=== PATIENT | male | born 1975 | race Two or more races ===

== ENCOUNTER 2024-07-23 18:43 | Emergency (ER) | payer MEDICAID, SELFPAY ==
[2024-07-23 18:58] VITALS: BP 153/84; PULSE 89; RESP 18; TEMP 36.8; O2SAT 97; BMI 26.5
--- NOTE | 2024-07-23 19:00 | ED.EYEPROB ---
HPI - Eye Problem General Chief complaint: Eye Problems Stated complaint: rt eye was welding Time Seen by Provider: 07/23/24 20:55 Source: patient Limitations: no limitations History of Present Illness ED Provider: Leila moran PA-C HPI Narrative: 49-year-old otherwise healthy male presents with flash burn to bilateral eyes. 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 Associated extreme eye pain, tearing, redness. Patient denies visual changes. The patient is not diabetic and he does not use contact lenses. Related Data Previous Rx's ?Medication ?Instructions ?Recorded erythromycin 5 mg/gram (0.5 %) eye 0.5 inch ophthalmic (eye) QID #3.5 07/23/24 ointment grams ketorolac 0.5 % eye drops 1 drp ophthalmic (eye) QID PRN 07/23/24 pain 2 weeks #10 mL white petrolatum-mineral oil 83 1 appl ophthalmic (eye) DAILY #3.5 07/23/24 %-15 % eye ointment (Artificial grams Eye Lubricant) Allergies Allergy/AdvReac Type Severity Reaction Status Date / Time No Known Allergies Allergy Verified 07/23/24 19:02 Review of Systems Review of Systems: Yes all other systems are reviewed and are negative Constitutional: Constitutional: Denies fatigue, Denies fever(s) and Denies headache(s) Eyes: Eyes: Denies change in vision, Reports eye discharge, Denies loss of vision, Reports eye pain and Reports photophobia ENT: Denies headache(s) Gastrointestinal: Gastrointestinal: Denies nausea Neurologic: Denies headache(s) and Denies loss of vision Endocrine: Endocrine: Denies fatigue [facility] Past Medical History Attestation statement: The following information was validated with the patient. Social History Social History Smoked in Last 30 Days: Yes Substance Use Type: Former Substance User Advance Directives: No Advance Directives Information Provided: No Do you have a plan to hurt others: No Plan Physical Exam Vital Signs: Vital Signs: Last Vital Signs Temp 98.2 F 07/23/24 22:20 Pulse 89 07/23/24 22:20 Resp 18 07/23/24 22:20 BP 153/84 H 07/23/24 22:20 Pulse Ox 97 07/23/24 22:20 O2 Del Method Room Air 07/23/24 22:20 BMI result Body Mass Index 26.5 Const: Other: Alert, appears extremely uncomfortable Orientation/consciousness: patient oriented x3 Eyes: Other: Both the bulbar and palpebral conjunctiva are severely injected, the palpebral conjunctiva are swollen, the eyes or excessively tearing Direct Ophthalmoscopy: photophobia Resp: Other: Nonlabored respirations Cardio: Other: Normal peripheral perfusion Skin: Other: Warm dry no rash Neuro: General: patient oriented x3, no focal motor deficits and CN's II-XI intact bilaterally Psych: Other: Cooperative Course Course Course Narrative: This is an RME: Additional HPI, ROS, PE not included below will be deferred to primary provider. RME assessment and note performed by: Mary Garrett PA-C This is a [id number]-male who presents to the ER with a complaint of ?foreign body to his right eye x 3 days. Pt reporting increased discomfort to the right eye. Reports that he is a plastics heat welder that uses protection but reports that he may have gotten something into his eyes. BL eye conjunctiva injected Plan: Visual acuity, eye examination, further ER evaluation needed. Medications Administered Discontinued Medications Generic Name Dose Route Start Last Admin Trade Name Freq PRN Reason Stop Dose Admin Artificial Tears 2 drop 07/23/24 21:08 07/23/24 21:20 Artificial Tears 15 Ml Drops EYE-BOTH 07/23/24 21:09 2 drop ONCE ONE Administration Erythromycin 1 cm 07/23/24 21:08 07/23/24 21:17 Erythromycin Base 0.5% Oph Oin 1 Gm Tube EYE-BOTH 07/23/24 21:09 1 cm ONCE ONE Administration Fluorescein Sodium 1 strip 07/23/24 19:02 07/23/24 21:16 Fluorescein Sodium Strip EYE-BOTH 07/23/24 19:03 Not Given ONCE ONE Ketorolac Tromethamine 30 mg 07/23/24 21:09 07/23/24 21:16 Ketorolac Tromethamine 30 Mg/Ml Vial IM 07/23/24 21:10 30 mg ONCE ONE Administration Oxycodone HCl 10 mg 07/23/24 21:09 07/23/24 21:16 Oxycodone Hcl Immed Release 5 Mg Tablet PO 07/23/24 21:10 10 mg ONCE ONE Administration Tetracaine HCl 1 drop 07/23/24 19:02 07/23/24 21:16 Tetracaine Hcl/Pf 0.5% Oph Vielka 4 Ml Drops EYE-BOTH 07/23/24 19:03 Not Given ONCE ONE Medical Decision Making Medical Decision Making MDM Narrative: 49-year-old otherwise healthy male presents with flash burn to bilateral eyes. 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 Associated extreme eye pain, tearing, redness. Patient denies visual changes. The patient is not diabetic and he does not use contact lenses. Problem: Flash burn History: Per patient I have considered the following differential diagnoses: Flash burn to bilateral eyes Plan: The mechanism of injury is clear, he sustained a flash burn, it is sad that his care was delayed. We will send with erythromycin ointment, ketorolac drops, oral pain meds, and the contact for Ophthalmology for the morning. The patient is eager for discharge, he is becoming irritable. He is asking to leave. No indication for labs or imaging Discharge Plan Discharge Clinical Impression: Pig Farmer's flash of both eyes Patient Disposition: Home, Self-Care Instructions: Corneal Flash Restrepo (ED) Additional Instructions: See home care instructions. Use the ointment, the erythromycin, as directed, this is an antibiotic to help prevent infection. Use the pain medication as needed for your discomfort. Use the artificial tears for further lubrication of your eye and to help control the pain. You need to follow up with an hospice care transitions coordinator, I will provide you with a contact. You need to call them tomorrow. See the contact listed below Prescriptions: New erythromycin 5 mg/gram (0.5 %) ointment 0.5 inch ophthalmic (eye) QID Qty: 3.5 0RF Artificial Eye Lubricant 83-15 % ointment 1 appl ophthalmic (eye) DAILY Qty: 3.5 0RF ketorolac 0.5 % drops 1 drp ophthalmic (eye) QID PRN (Reason: pain) 14 Days Qty: 10 0RF Rx Instructions: Patient received an intramuscular dose of Toradol here in the emergency department Referrals: Seth Brannon [Physician] - (Call tomorrow to make an appointment; patient sustained a flash burn to both eyes 5 days ago. He is a plastics heat welder) Interventions: ED Discharge Assessment Last Done: 07/23/24 22:20 Discharge Date/Time: 07/23/24 22:22 Print Language: Kinyarwanda
[2024-07-23] MEDS: oxyCODONE HCl Immed Release 5 MG TABLET 10 MG PO (21:16)
[2024-07-23] MEDS: Ketorolac Tromethamine 30 MG/ML VIAL IM (21:16)
[2024-07-23] MEDS: Erythromycin Base 0.5% Oph Oin 1 GM TUBE 1 CM EYE-BOTH (21:17)
[2024-07-23] MEDS: Artificial Tears 15 ML DROPS 2 DROP EYE-BOTH (21:20)
[2024-07-23 22:20] VITALS: BP 153/84; PULSE 89; RESP 18; TEMP 36.8; O2SAT 97
== END 2024-07-23 22:22 | disposition home or self-care (01) ==
PROVIDERS: Emergency Provider Emergency Medicine
DX: H16.133 Photokeratitis, bilateral (principal)
CPT/HCPCS: 96372; 99284; J1885

== ENCOUNTER 2025-04-06 10:55 | Emergency (ER) | payer MEDICAID, SELFPAY ==
[2025-04-06] VITALS (7 sets, daily range): BP systolic 100–132; BP diastolic 54–73; PULSE 46–60; RESP 11–22; TEMP 36.4–37.1; O2SAT 96–100; BMI 25.1
--- NOTE | 2025-04-06 10:59 | ECG_ITS ---
Test Reason : WEKNESS /ABD PAIN Blood Pressure : */* mmHG Vent. Rate : 58 BPM Atrial Rate : 58 BPM P-R Int : 130 ms QRS Dur : 88 ms QT Int : 558 ms P-R-T Axes : 75 74 72 degrees QTcB Int : 547 ms Sinus bradycardia T wave abnormality, consider anterior ischemia Prolonged QT Abnormal ECG No previous ECGs available Referred By: Elly Palacios Electronically Signed By: JEFFERSON GUERRERO
--- NOTE | 2025-04-06 10:59 | ED.GENADULT ---
HPI - General Adult General Chief complaint: Weakness Stated complaint: weak Time Seen by Provider: 04/06/25 11:40 Source: patient, EMS and old records reviewed Mode of arrival: EMS Limitations: no limitations History of Present Illness ED Provider: DANNI HPI narrative: 49 yo male with PMH of opiate use disorder who takes 140mg methadone daily did not take any today. He notes he snorted 3 bags of heroin from a new dealer. He started to feel weak and lightheaded so dosed himself with [place] narcan. He now has abd cramps, chills, sweats, muscle aches and n/v diarrhea. He takes 140mg methadone daily but did not take it today states he last went yesterday. He never had LOC with today's drug use. 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) Location: abdomen Radiation: non-radiation Severity: moderate Quality: aching Pain Consistency: constant Relieving factors: none Exacerbating factors: movement Associated symptoms: fever/chills, loss of appetite, malaise and weakness Treatments prior to arrival: other Related Data Previous Rx's ?Medication ?Instructions ?Recorded erythromycin 5 mg/gram (0.5 %) eye 0.5 inch ophthalmic (eye) QID #3.5 07/23/24 ointment grams ketorolac 0.5 % eye drops 1 drp ophthalmic (eye) QID PRN 07/23/24 pain 2 weeks #10 mL white petrolatum-mineral oil 83 1 appl ophthalmic (eye) DAILY #3.5 07/23/24 %-15 % eye ointment (Artificial grams Eye Lubricant) Allergies Allergy/AdvReac Type Severity Reaction Status Date / Time No Known Allergies Allergy Verified 04/06/25 11:00 Review of Systems Review of Systems: Constitutional : No Weight loss, No Fever, pos Chills ENT/Mouth : No sore throat, No Rhinorrhea Eyes: No Swelling, No Redness Cardiovascular : No Chest Pain, No SOB, NoEdema Respiratory : No Cough, No Sputum, No Wheezing Gastrointestinal : Positive Nausea, Positive Vomiting, positive Diarrhea, positive abdominal Pain, No Hematochezia, No Melena Genitourinary : No Dysuria, No Urinary Frequency, No Hematuria, No Urgency Musculoskeletal : No joint pain, pos Myalgias, No Joint Swelling Skin : No Skin Lesions, No rash Neuro : No Weakness, No Numbness, No Dizziness, No Headache All other systems reviewed and are negative. [facility] Past Medical History Attestation statement: The following information was validated with the patient. Source: old records reviewed Social History Social History Alcohol intake: former Smoked in Last 30 Days: Yes Use of substances other than those prescribed or required for medical reasons: Yes Substance Use Type: Heroin Advance Directives: No Advance Directives Information Provided: No Physical Exam ED Vital Signs: Vital Signs - 24 hr 04/06/25 10:57 04/06/25 12:17 04/06/25 12:22 Temperature 97.6 F 98.6 F Pulse Rate 60 48 L Pulse Rate [Monitor] 48 L Respiratory Rate 22 H 18 Blood Pressure 132/73 115/65 Pulse Oximetry 100 96 Oxygen Delivery Method Room Air Room Air 04/06/25 13:56 Temperature Pulse Rate 55 Pulse Rate [Monitor] Respiratory Rate 16 Blood Pressure Pulse Oximetry 97 Oxygen Delivery Method Room Air BMI result Body Mass Index 25.1 Appearance: Alert. Oriented X3. anxious active diarrhea mild acute distress. Eyes: Pupils equal, round and reactive to light. ENT: Pharynx normal. Neck: Normal inspection. Neck supple. CVS: Normal heart rate and rhythm. Pulses normal. Respiratory: No respiratory distress. Breath sounds normal. Abdomen: Soft and nontender. Skin: Skin warm and clammy, pilorection. Normal skin color. Normal skin turgor. Extremities: No lower extremity edema. No calf ttp Neuro: Oriented X 3. No motor deficit. No sensory deficit. CN2-12 intact Course Course Course Narrative: This is a rapid medical exam performed by Anil Palacios NP: Additional HPI, ROS, PE not included below will be deferred to primary provider. Patient is a 49-year-old male presenting with complaint of weakness and abdominal pain, nausea after using 3 bags of heroin prior to arrival. He is diaphoretic in triage. States that he snorts the heroin, did not get it from his usual dealer. Plan: EKG, labs Reevaluation(s) Reevaluation #1: t wave changes but he has no chest pain to suggest ischemia we did send his EKG to methadone clinic last dose 04/02 with 4 take home bottles Medications Administered Discontinued Medications Generic Name Dose Route Start Last Admin Trade Name Freq PRN Reason Stop Dose Admin Diazepam 2.5 mg 04/06/25 11:40 04/06/25 12:09 Diazepam 10 Mg/2 Ml Cartridge IVPUSH 04/06/25 11:41 2.5 mg STAT STA Administration Diazepam 2.5 mg 04/06/25 13:16 04/06/25 13:29 Diazepam 10 Mg/2 Ml Cartridge IVPUSH 04/06/25 13:17 2.5 mg STAT STA Administration Diphenoxylate HCl/Atropine 1 tab 04/06/25 13:16 04/06/25 13:28 Diphenoxylate/Atrop 2.5/0.025 Tablet PO 04/06/25 13:17 1 tab ONCE ONE Administration Magnesium Sulfate 2 gm in 50 mls @ 25 mls/hr 04/06/25 11:40 04/06/25 12:09 Magnesium Sulfate/H2o IV 04/06/25 13:39 25 mls/hr ONCE ONE Administration Lactated Ringer's 1,000 mls @ 999 mls/hr 04/06/25 11:40 04/06/25 13:23 Lr IV 04/06/25 12:40 Infused .Q1H1M ONE Infusion Medical Decision Making Medical Decision Making MDM Narrative: 49 yo male with PMH of opiate use disorder here s/p self admin of narcan after feeling weird with new heroin. At this time will obtain labs, qtc prolonged IV magnesium ordered, hydrate and discuss with addiction medicine given methadone and addiction medicine. Differential Diagnosis Differential Diagnoses: The differential diagnosis associated with the presentation includes opiate withdrawal, lyte abnormality Admission/Observation Consideration of admission/observation: Escalation of care including admission/observation considered repeat trop negative, tolerating PO feels much better Consult Healthcare Provider Management of the patient was discussed with: Animal Sitter (continue methadone after discussion with addiction) Lab Data MDM Lab Attestation statement: I reviewed the patient's lab results. 04/06/25 11:20 04/06/25 11:20 Labs: Lab Results 04/06/25 04/06/25 Range/Units 11:20 11:33 WBC 6.1 (4.8-10.8) X10*3/uL RBC 4.69 (4.60-5.80) X10*6/uL Hgb 14.0 (14.0-18.0) g/dl Hct 43.1 (42.0-52.0) % MCV 91.9 (80.0-98.0) fL MCH 29.9 (27.0-33.0) pg MCHC 32.5 (31.0-36.0) g/dl RDW 13.3 (11.0-16.0) % Plt Count 245 (160-400) X10*3/uL MPV 9.0 L (9.4-12.4) fL Immature Gran % (Auto) 0.3 (0.0-0.4) % Neut % (Auto) 73.9 H (45-73) % Lymph % (Auto) 16.8 L (20-40) % [place] % (Auto) 6.9 (2-11) % Eos % (Auto) 1.3 (0-4) % Baso % (Auto) 0.8 (0-2) % Lymph # (Auto) 1.0 L (1.2-4.9) X10*3/uL [place] # (Auto) 0.4 (0.1-1.2) X10*3/uL Eos # (Auto) 0.1 (0.0-0.4) X10*3/uL Baso # (Auto) 0.1 (0.0-0.2) X10*3/uL Abs Immat Gran (auto) 0.02 (0.00-0.03) X10*3/uL Absolute Neuts (auto) 4.5 (2.0-8.3) x10*3/uL Absolute Nucleated RBC 0.000 (0.0-0.012) X10*3/uL Nucleated RBC % (auto) 0.0 (0.0-0.2) /100WBC Sodium 141 (135-145) mmol/L Potassium 3.9 (3.3-5.1) mmol/L Chloride 109 H (96-108) mmol/L Carbon Dioxide 23 (22-29) mmol/L Anion Gap 13 (12-20) BUN 15 (9-16) mg/dL Creatinine 1.01 (0.5-1.4) mg/dL Estim Creat Clear Calc 90.3 Estimated GFR > 60 Random Glucose 228 H (60-115) mg/dL Calcium 9.1 (8.4-10.2) mg/dL Magnesium 2.3 (1.6-2.6) mg/dL Total Bilirubin 1.0 (0.0-1.0) mg/dL AST 45 H (5-37) U/L ALT 34 (0-40) U/L Alkaline Phosphatase 78 (39-117) U/L Troponin I High Sens < 2.7 (<3.5-35.0) ng/L Total Protein 6.7 (6.5-8.0) g/dL Albumin 3.7 (3.5-5.0) g/dL Urine Opiates Screen POSITIVE H (Not Detect) Ur Buprenorphine Scrn Not Detected (Not Detect) ng/mL Ur Oxycodone Screen Not Detected (Not Detect) ng/mL Urine Methadone Screen Positive H (Not Detect) ng/mL Urine Fentanyl Screen POSITIVE H (Not Detect) Ur Barbiturates Screen Not Detected (Not Detect) Ur Phencyclidine Scrn Not Detected (Not Detect) Ur Amphetamines Screen Not Detected (Not Detect) U Benzodiazepines Scrn Not Detected (Not Detect) Urine Cocaine Screen POSITIVE H (Not Detect) U Marijuana (THC) Screen Not Detected (Not Detect) Ethyl Alcohol < 10 mg/dL Independent Interpretation I performed an independent interpretation of an: EKG Interpretation: Rate: 58 Rhythm: sinus bradycardia [place]: Normal P waves. Normal CATHY. Normal QRS complex. ST T wave : inverted t waves in aVL, V1-V3, no ELAYNE qTC: 547 prior studies: prolonged qtc no priors The study has been interpreted contemporaneously by me. EKG #2 Rate:52 Rhythm: sinus bradycardia [place]: normal Normal P waves. Normal CATHY. Normal QRS complex. ST T wave : inverted t waves V1, V2, V3, no ELAYNE qTC: 505 prior studies: no sig change, qtc shorter The study has been interpreted contemporaneously by me. . External Record Review External record reviewed: Outpatient record Prescription Management I considered prescription management with: Other Discharge Plan Discharge Clinical Impression: Opiate withdrawal Patient Disposition: Home, Self-Care Instructions: Opioid Withdrawal (ED) Additional Instructions: stay with responsible adult tonight Opiate use disorder You were seen in our Emergency Department today for treatment of opiate use disorder. You may have been dosed with medication for opiate use disorder (MOUD) in the form of suboxone or methadone. You may experience feeling some withdrawal symptoms and this is normal. The? dose in the Emergency Department is a starting dose and meant to be titrated up once you follow up with a clinic. Please do not feel discouraged, it is a process. The nurse has reviewed with you where to follow up and what information to bring with you, to continue treatment. You also may have been given naloxone (narcan) to take home with you. This medication is used to potentially treat opiate overdose. If you decide you want to stop or cut down on how much you?re using, you can call or walk into our outpatient Addiction Treatment office: [facility] (M-F 9am-5p) [address] [place] [address], [phone] You may have been provided with safer injection?items, please take time to take care of YOU and your health. Use new supplies whenever possible to lessen the chances of infections and other illnesses.? ?If you need more supplies, please go [facility],? [address] [place] [address] OR you can call or text to coordinate delivery of safer supplies. You were also provided a list of several treatment providers in the area.? If you experience any worsening symptoms you cannot control please return to the ED or call 911. Please follow up at your next appointment. Things to look out for are fevers, chest pain, shortness of breath, severe pain, dizziness, fainting or any other concerns. Prescriptions: No Action erythromycin 5 mg/gram (0.5 %) ointment 0.5 inch ophthalmic (eye) QID Qty: 3.5 0RF Artificial Eye Lubricant 83-15 % ointment 1 appl ophthalmic (eye) DAILY Qty: 3.5 0RF ketorolac 0.5 % drops 1 drp ophthalmic (eye) QID PRN (Reason: pain) 14 Days Qty: 10 0RF Rx Instructions: Patient received an intramuscular dose of Toradol here in the emergency department Print Language: Bengali
[2025-04-06 11:26] LABS: MANUAL DIFF FLAG NO
[2025-04-06 11:27] LABS: Hematocrit 43.1 % (42.0-52.0); Hemoglobin 14.0 g/dl (14.0-18.0); Imm Gran Abs Auto 0.02 X10*3/uL (0.00-0.03); Imm Gran Pct Auto 0.3 % (0.0-0.4); Lymphocytes Absolute Auto 1.0 X10*3/uL (1.2-4.9); Mean Corpuscular HGB Conc 32.5 g/dl (31.0-36.0); Mean Corpuscular Hemoglobin 29.9 pg (27.0-33.0); Mean Corpuscular Volume 91.9 fL (80.0-98.0); NRBC Abs Auto 0.000 X10*3/uL (0.0-0.012); NRBC Pct Auto 0.0 /100WBC (0.0-0.2); Platelet Count 245 X10*3/uL (160-400); Red Blood Count 4.69 X10*6/uL (4.60-5.80); White Blood Count 6.1 X10*3/uL (4.8-10.8)
[2025-04-06 11:42] LABS: Alanine Aminotransferase 34 U/L (0-40); Albumin Level 3.7 g/dL (3.5-5.0); Alkaline Phosphatase 78 U/L (39-117); Anion Gap 13 (12-20); Aspartate Amino Transferase 45 U/L (5-37); Blood Urea Nitrogen 15 mg/dL (9-16); Calcium 9.1 mg/dL (8.4-10.2); Carbon Dioxide 23 mmol/L (22-29); Chloride 109 mmol/L (96-108); Creatinine Clr Calc Pharmacy 90.3; Estimated Glomerular Filt Rate > 60; Magnesium 2.3 mg/dL (1.6-2.6); Potassium 3.9 mmol/L (3.3-5.1); Sodium 141 mmol/L (135-145); Total Protein 6.7 g/dL (6.5-8.0)
[2025-04-06 11:52] LABS: Cannabinoid Screen Urine Not Detected (Not Detect)
[2025-04-06 11:53] LABS: Troponin-I High Sensitivity < 2.7 ng/L (<3.5-35.0)
[2025-04-06] MEDS: Lactated Ringers 1,000 ML 999 ML IV (12:00)
[2025-04-06] MEDS: diazePAM 10 MG/2 ML CARTRIDGE 2.5 MG IVPUSH ×2 (12:09→13:29)
[2025-04-06] MEDS: Magnesium Sulfate/H2O 2 GM/50 ML PIGGYBACK IV (12:09)
--- NOTE | 2025-04-06 12:28 | PC.NURSE ---
Pt placed in 22h and initially appeared weak and sl diaphoretic. Requesting to go to bathroom and noted with loose stool and dry heaving on toilet. Pt also yawning and increasingly restless. Placed on court monitor d/t prolonged QTC on EKG. Inquired about Narcan admin as pt states he gave himself Narcan after feeling weird and weak after using one bag from new dealer. Dr Noble to bedside for assessment. Plan for labs, IV and meds to assist. Pt reports Methadone 140mg, last dose yesterday, not dosed today but will hold in ED d/t prolonged QTC. Pt reports daily heroin use, no ETOH x 10 years, changed over and belongings in [employer] port Denies SI or HI Sinus bady on tele in 40s.
--- NOTE | 2025-04-06 12:47 | ECG_ITS ---
Test Reason : CHECK QTC Blood Pressure : */* mmHG Vent. Rate : 52 BPM Atrial Rate : 52 BPM P-R Int : 134 ms QRS Dur : 86 ms QT Int : 544 ms P-R-T Axes : 83 85 79 degrees QTcB Int : 505 ms Sinus bradycardia T wave abnormality, consider anterior ischemia Prolonged QT Abnormal ECG When compared with ECG of 06-Apr-2025 11:07, No significant change was found Referred By: Rosemary Noble Electronically Signed By: JEFFERSON GUERRERO
[2025-04-06 15:47] LABS: Troponin-I High Sensitivity < 2.7 ng/L (<3.5-35.0)
== END 2025-04-06 17:57 | disposition home or self-care (01) ==
PROVIDERS: Registered Nurse Emergency; Emergency Provider Emergency Medicine
DX: F11.23 Opioid dependence with withdrawal (principal); R53.1 Weakness; R50.9 Fever, unspecified; R11.0 Nausea; R00.1 Bradycardia, unspecified; R10.2 Pelvic and perineal pain; Z51.81 Encounter for therapeutic drug level monitoring; Z79.899 Other long term (current) drug therapy
CPT/HCPCS: 36415; 80053; 80307; 83735; 84484; 85025; 93005; 96361; 96374; 96375; 96376; 99284; 99285; J3360; J3475; J7120

== ENCOUNTER → 2025-04-06 10:59 | Outpatient (BNV) | payer MEDICAID, SELFPAY | PROVIDERS: Emergency Provider Emergency Medicine; Visit Provider Internal Medicine | DX: R00.1 Bradycardia, unspecified (principal) | CPT/HCPCS: 93010 ==

== ENCOUNTER → 2025-05-12 05:34 | Outpatient (BNV) | payer MEDICAID, SELFPAY | PROVIDERS: Emergency Provider Emergency Medicine; PCP Dentist General Practice; Visit Provider Specialist | DX: R22.31 Localized swelling, mass and lump, right upper limb (principal); M79.644 Pain in right finger(s) | CPT/HCPCS: 73140; 73201 ==

== ENCOUNTER 2025-05-12 06:09 | Inpatient (IN) | payer MEDICAID, SELFPAY ==
[2025-05-12] VITALS (15 sets, daily range): BP systolic 113–156; BP diastolic 64–83; PULSE 45–58; RESP 12–20; TEMP 36.6–37; O2SAT 93–100; BMI 27.9
--- NOTE | ~2025-05-12 | XR_ITS ---
CLINICAL HISTORY: Pain swelling second finger --- Additional Notes or Special Instructions: t 3 view right index finger Comparison: None Findings: Bones intact. No dislocations. No significant arthritic change. No erosions. No radiopaque foreign body. IMPRESSION: 1. No acute findings This document has been electronically signed by: Chai Gutierrez MD on 05/12/2025 07:02:17
--- NOTE | ~2025-05-12 | CT_ITS ---
EXAMINATION: CT HAND WITH CONTRAST, RIGHT CLINICAL INFORMATION: Question index finger infection. COMPARISON: Correlated to x-ray dated May 12, 2025. TECHNIQUE: Contiguous axial images through the right hand from the right wrist to the tips of the fingers using 3 mm collimation and following the IV contrast administration 85 cc Omnipaque 350 strength without reported immediate complications. Bone and soft tissue algorithm. Sagittal and coronal reformatted images. This CT examination was performed using dose optimization techniques as appropriate, variously including the following: *Automated exposure control *Adjustment of mA and/or kV according to patient size (this includes techniques or standardized protocols for targeted exams where dose is matched to indication/reason for exam; i.e. extremities or head) *Use of iterative reconstruction technique DLP: 112 mGy centimeter. FINDINGS: No osteolysis. No periosteal bone reaction. No soft tissue calcifications. There is diffuse edema pattern surrounding the volar and to a lesser extent dorsal aspect of the index finger pronounced from the medial and interphalangeal joint to tip. No subcutaneous emphysema. No acute fracture or dislocation. CT/CT hand RT w IV con IMPRESSION: Soft tissue edema pattern without subcutaneous emphysema or fluid collections involving the index finger of the right hand. Phlegmon/cellulitis cannot be excluded. No osteomyelitis based upon x-ray. Electronically signed by: Nav Vergara MD 05/12/2025 10:03 AM EDT
--- NOTE | 2025-05-12 07:10 | ED.EXTPRO ---
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 He has had pain in the index finger of his right hand getting worse over the last 2 days. He denies any specific injury but he says that he often has minor injuries to the skin of his hands because of his work. He is right-handed. He has had no fever. He says the pain is primarily in the middle portion of the finger. Related Data Home Medications ?Medication ?Instructions ?Recorded ?Confirmed methadone 10 mg/mL oral 140 mg PO DAILY 05/12/25 05/12/25 concentrate (Methadose) Allergies Allergy/AdvReac Type Severity Reaction Status Date / Time No Known Allergies Allergy Verified 05/12/25 06:18 Review of Systems Review of Systems: Yes all other systems are reviewed and are negative [facility] Social History Social History Household Members: Unknown / Unable to assess Housing: Unknown / Unable to assess Alcohol intake: former Patient Tobacco Use Status: Tobacco use Unknown Smoked in Last 30 Days: Yes Use of substances other than those prescribed or required for medical reasons: Yes Substance Use Type: Heroin Substance Use Frequency: Daily Last Used Substance: Days (ago) Advance Directives: No Do you have a plan to hurt others: No Plan Recently lost weight without trying: Unsure How much weight loss: Unsure Physical Exam Vital Signs: Vital Signs: Last Vital Signs Temp 97.8 F 05/12/25 17:08 Pulse 45 L 05/12/25 17:08 Resp 16 05/12/25 17:08 BP 156/83 H 05/12/25 17:08 Pulse Ox 99 05/12/25 17:08 O2 Del Method Room Air 05/12/25 17:08 BMI result Body Mass Index 27.9 Const: Other: The patient is awake and alert. He seems uncomfortable. Orientation/consciousness: patient oriented x3 HEENT: Other: The face is symmetrical. ?Mucous membranes moist. Eyes: Other: Pupils are round equal, conjunctivae are clear, extraocular movements intact Neck: Neck: Yes normal visual inspection and Yes full ROM Cardio: Rate: bradycardic Rhythm: regular rhythm Heart sounds: S1 normal heart sound present and S2 normal heart sound present GI: Other: Abdomen is soft and nontender Skin: Other: There is soft tissue swelling to the skin of the right index finger. This is most prominent on the palmar aspect of the middle portion of the finger and seems somewhat more prominent on the ulnar side. He is exquisitely tender with palpation of the soft tissue swelling in the middle portion of the finger on the volar aspect of the finger. Neuro: General: patient oriented x3, gait normal, moves all extremities, no focal motor deficits and CN's II-XI intact bilaterally Extrem: Other: The patient has soft tissue swelling to the right index finger generally. It is most pronounced in the middle portion of the finger and seems most pronounced on the ulnar side of the middle section of the finger. He is exquisitely tender to palpation to the volar soft tissues overlying the middle phalanx. I do not appreciate any significant tenderness along the course of the flexor tendon on the palm however the patient seems to have exquisite tenderness with passive extension of the right index finger. Medications Administered Generic Name Dose Route Start Last Admin Trade Name Freq PRN Reason Stop Dose Admin Lactated Ringer's 1,000 mls @ 100 mls/hr 05/12/25 16:30 05/12/25 17:14 Lr IVCONT 100 mls/hr .Q10H ANA Administration Sodium Chloride 3 ml 05/12/25 16:30 05/12/25 17:14 0.9 % Sodium Chloride Flush 3 Ml Syringe IVFLUSH 3 ml QSHIFT ANA Administration Discontinued Medications Generic Name Dose Route Start Last Admin Trade Name Freq PRN Reason Stop Dose Admin Hydromorphone HCl 1 mg 05/12/25 07:53 05/12/25 07:57 Hydromorphone Hcl 1 Mg/Ml Syringe IVPUSH 05/12/25 07:54 1 mg ONCE ONE Administration Protocol Hydromorphone HCl 1 mg 05/12/25 09:40 05/12/25 09:46 Hydromorphone Hcl 1 Mg/Ml Syringe IVPUSH 05/12/25 09:41 1 mg ONCE ONE Administration Protocol Acetaminophen 1,000 mg in 100 mls @ 400 mls/hr 05/12/25 07:16 05/12/25 07:42 Ofirmev IV 05/12/25 07:30 Infused ONCE ONE Infusion Vancomycin HCl 2,000 mg in 500 mls @ 250 mls/hr 05/12/25 08:10 05/12/25 11:10 Vancomycin/Ns IV 05/12/25 10:09 Infused ONCE ONE Infusion Acetaminophen 1,000 mg in 100 mls @ 400 mls/hr 05/12/25 15:25 05/12/25 16:36 Ofirmev IV 05/12/25 21:26 Infused ONCE PRN Infusion Pain, Mild (Pain Scale 1-3) Iohexol 100 ml 05/12/25 09:36 05/12/25 09:37 Iohexol 350 Mg/Ml 100 Ml Infus..Btl IV 05/12/25 09:37 85 ml ONCE ONE Administration Ketorolac Tromethamine 15 mg 05/12/25 07:14 05/12/25 07:27 Ketorolac Tromethamine 15 Mg/Ml Vial IVPUSH 05/12/25 07:15 15 mg ONCE ONE Administration Methadone HCl 140 mg 05/12/25 10:30 05/12/25 10:25 Methadone Hcl 20 Mg/2 Ml Oral.Conc PO 05/12/25 10:31 140 mg ONCE ONE Administration Medical Decision Making Medical Decision Making MDM Narrative: The patient is a 50-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 He uses his hands a lot and gets occasional injuries to the hand but does not recall any specific injury recently. He says he has had worsening pain to the right index finger over the last 2 days and is now in severe pain. He is right-handed. No definite fever. He acknowledges the pain is maximal in the soft tissues overlying the middle phalanx on the palmar aspect of the finger. My concern is that he has some kind of significant soft tissue infection, either an abscess or possibly a flexor tendon infection. Orthopedics was consulted. Recommendation was for a CT of the hand. This was done. No abscess was seen on CT. In the meantime the patient had had blood cultures and a lactate drawn and started on IV vancomycin. Lactate was normal. The patient was ultimately admitted to the orthopedic service with a plan to go to the operating room for possible flexor tenosynovitis. The patient was given hydromorphone for pain. Lab Data 05/12/25 07:26 05/12/25 07:26 Labs: Lab Results 08/22/25 08/22/25 Range/Units 07:26 08:37 WBC 12.1 H (4.8-10.8) X10*3/uL RBC 3.80 L (4.60-5.80) X10*6/uL Hgb 11.6 L (14.0-18.0) g/dl Hct 33.7 L D (42.0-52.0) % MCV 88.7 (80.0-98.0) fL MCH 30.5 (27.0-33.0) pg MCHC 34.4 (31.0-36.0) g/dl RDW 13.3 (11.0-16.0) % Plt Count 226 (160-400) X10*3/uL MPV 9.0 L (9.4-12.4) fL Immature Gran % (Auto) 0.5 H (0.0-0.4) % Neut % (Auto) 77.1 H (45-73) % Lymph % (Auto) 11.5 L (20-40) % [place] % (Auto) 10.0 (2-11) % Eos % (Auto) 0.7 (0-4) % Baso % (Auto) 0.2 (0-2) % Lymph # (Auto) 1.4 (1.2-4.9) X10*3/uL [place] # (Auto) 1.2 (0.1-1.2) X10*3/uL Eos # (Auto) 0.1 (0.0-0.4) X10*3/uL Baso # (Auto) 0.0 (0.0-0.2) X10*3/uL Abs Immat Gran (auto) 0.06 H (0.00-0.03) X10*3/uL Absolute Neuts (auto) 9.3 H (2.0-8.3) x10*3/uL Absolute Nucleated RBC 0.000 (0.0-0.012) X10*3/uL Nucleated RBC % (auto) 0.0 (0.0-0.2) /100WBC Sodium 137 (135-145) mmol/L Potassium 4.4 (3.3-5.1) mmol/L Chloride 103 (96-108) mmol/L Carbon Dioxide 25 (22-29) mmol/L Anion Gap 13 (12-20) BUN 18 H (9-16) mg/dL Creatinine 0.89 (0.5-1.4) mg/dL Estim Creat Clear Calc 113.1 Estimated GFR > 60 Random Glucose 112 (60-115) mg/dL Estimat Average Glucose 114 mg/dL Hemoglobin A1c % 5.6 (<6.0) % Lactic Acid 0.6 (0.5-2.0) mmol/L Calcium 8.5 D (8.4-10.2) mg/dL Total Bilirubin 0.5 (0.0-1.0) mg/dL Direct Bilirubin 0.2 (0.0-0.5) mg/dL AST 55 H (5-37) U/L ALT 51 H (0-40) U/L Alkaline Phosphatase 80 (39-117) U/L C-Reactive Protein 4.03 H (< or = 0.50) mg/dL Total Protein 6.0 L (6.5-8.0) g/dL Albumin 3.4 L (3.5-5.0) g/dL Discharge Plan Discharge Clinical Impression: Infection of finger Patient Disposition: Admitted As Inpatient Interventions: Admission Worksheet (ED) Last Done: 05/12/25 10:44 Discharge Date/Time: 05/12/25 12:30
[2025-05-12 07:31] LABS: MANUAL DIFF FLAG NO
[2025-05-12 07:32] LABS: Hematocrit 33.7 % (42.0-52.0); Hemoglobin 11.6 g/dl (14.0-18.0); Imm Gran Abs Auto 0.06 X10*3/uL (0.00-0.03); Imm Gran Pct Auto 0.5 % (0.0-0.4); Lymphocytes Absolute Auto 1.4 X10*3/uL (1.2-4.9); Mean Corpuscular HGB Conc 34.4 g/dl (31.0-36.0); Mean Corpuscular Hemoglobin 30.5 pg (27.0-33.0); Mean Corpuscular Volume 88.7 fL (80.0-98.0); NRBC Abs Auto 0.000 X10*3/uL (0.0-0.012); NRBC Pct Auto 0.0 /100WBC (0.0-0.2); Platelet Count 226 X10*3/uL (160-400); Red Blood Count 3.80 X10*6/uL (4.60-5.80); White Blood Count 12.1 X10*3/uL (4.8-10.8)
--- NOTE | 2025-05-12 07:32 | PC.NURSE ---
Assumed care of pt approx 0700, reporting 10/10 pain in finger. A/O x 3, ambulates with steady gait. #20 placed in L FA, medicated per NOV. X-ray and labs pending..
[2025-05-12 07:51] LABS: Alanine Aminotransferase 51 U/L (0-40); Albumin Level 3.4 g/dL (3.5-5.0); Alkaline Phosphatase 80 U/L (39-117); Anion Gap 13 (12-20); Aspartate Amino Transferase 55 U/L (5-37); Blood Urea Nitrogen 18 mg/dL (9-16); Calcium 8.5 mg/dL (8.4-10.2); Carbon Dioxide 25 mmol/L (22-29); Chloride 103 mmol/L (96-108); Creatinine Clr Calc Pharmacy 113.1; Estimated Glomerular Filt Rate > 60; Potassium 4.4 mmol/L (3.3-5.1); Sodium 137 mmol/L (135-145); Total Protein 6.0 g/dL (6.5-8.0)
[2025-05-12 07:52] LABS: Hemoglobin A1C 114.1192 umol/L; Total Hemoglobin (HGBA1C) 3057.4870 umol/L
--- NOTE | 2025-05-12 08:09 | PC.NURSE ---
Pt reports IV APAP and toradol ineffective for pain, MD aware and new orders in place. Pt medicated with IV dilaudid with + effect. While obtaining VS, pt noted to be bradycardic with HR in 40's. Placed on bedside monitor. Pt asymptomatic, md notified and EKG ordered.
--- NOTE | 2025-05-12 08:11 | ECG_ITS ---
Test Reason : bradycardia Blood Pressure : */* mmHG Vent. Rate : 44 BPM Atrial Rate : 44 BPM P-R Int : 122 ms QRS Dur : 90 ms QT Int : 478 ms P-R-T Axes : 74 78 65 degrees QTcB Int : 408 ms Marked sinus bradycardia Abnormal ECG When compared with ECG of 06-Apr-2025 12:55, T wave inversion no longer evident in Anterior leads QT has shortened Referred By: [place] Electronically Signed By: ALBERTO GRIFFITH MD
[2025-05-12] MEDS: vancomycin/NS 2,000 MG/500 ML PLAST..BAG 250 MG IV (08:40)
--- NOTE | 2025-05-12 09:00 | PC.NURSE ---
Pt informed this RN he takes methadone daily, dosage confirmed with clinic and MD aware. No new orders at this time d/t ? NPO status, CT scan of right index finger pending.
[2025-05-12] MEDS: iohexoL 350 MG/ML 100 ML INFUS..BTL IV (09:37)
[2025-05-12 10:15] LABS: Cannabinoid Screen Urine Not Detected (Not Detect)
--- NOTE | 2025-05-12 10:16 | HE.PHANOTE ---
RE: methadone Patient last received 140mg at [facility] 05/09/25 @0540
[2025-05-12] MEDS: methADONE HCl 20 MG/2 ML ORAL.CONC 140 MG PO (10:25)
--- NOTE | 2025-05-12 13:22 | HO.ANESPROP2 ---
Documented by User: Zayra Sidhu NP 05/12/25 10:09 HPI - Anesthesia Eval Consult details Narrative: 50 yr old male for I&D right finger HRs in 40s No CP/SOB with walking daily No recent illness: +smoker, smoker's cough Opioid abuse: on methadone 140 mg daily PMFSH Active Problems Active Problems: All Active Problems (Updated 05/12/25 @ 09:49 by [place] MD) Infection of finger (Acute) Family History Family history of problems with anesthesia: No Surgical History History of Problems with Anesthesia: No Social History Social History Alcohol intake: former Patient Tobacco Use Status: Current everyday Tobacco user Smoked in Last 30 Days: Yes Use of substances other than those prescribed or required for medical reasons: Yes Substance Use Type: Heroin Substance Use Frequency: Daily Last Used Substance: Days (ago) Advance Directives: No Do you have a plan to hurt others: No Plan Meds Allergies Allergy/AdvReac Type Severity Reaction Status Date / Time No Known Allergies Allergy Verified 05/12/25 06:18 Active Medications: Current Medications Vancomycin HCl (Vancomycin/Ns) 2,000 mg in 500 mls @ 250 mls/hr IV ONCE ONE Stop: 05/12/25 10:09 Last Admin: 05/12/25 08:40 Dose: 250 mls/hr Home Medications ?Medication ?Instructions ?Recorded ?Confirmed ?Last Taken ?Type methadone 10 mg/mL oral 140 mg PO DAILY 05/12/25 05/12/25 05/09/25 08:41 History concentrate (Methadose) Exam Height,Weight and Vital Signs: Height 5 ft 11 in Weight 90.718 kg Last Vital Signs Temp 98.6 F 05/12/25 08:04 Pulse 46 L 05/12/25 09:52 Resp 14 05/12/25 09:52 BP 119/70 05/12/25 09:52 Pulse Ox 96 05/12/25 09:52 O2 Del Method Room Air 05/12/25 09:52 Pertinent Lab Results Pertinent Lab Results: Laboratory Tests 05/12/25 05/12/25 07:26 08:37 WBC 12.1 H RBC 3.80 L Hgb 11.6 L Hct 33.7 L D MCV 88.7 MCH 30.5 MCHC 34.4 RDW 13.3 Plt Count 226 MPV 9.0 L Immature Gran % (Auto) 0.5 H Neut % (Auto) 77.1 H Lymph % (Auto) 11.5 L [place] % (Auto) 10.0 Eos % (Auto) 0.7 Baso % (Auto) 0.2 Lymph # (Auto) 1.4 [place] # (Auto) 1.2 Eos # (Auto) 0.1 Baso # (Auto) 0.0 Abs Immat Gran (auto) 0.06 H Absolute Neuts (auto) 9.3 H Absolute Nucleated RBC 0.000 Nucleated RBC % (auto) 0.0 Sodium 137 Potassium 4.4 Chloride 103 Carbon Dioxide 25 Anion Gap 13 BUN 18 H Creatinine 0.89 Estim Creat Clear Calc 113.1 Estimated GFR > 60 Random Glucose 112 Estimat Average Glucose 114 Hemoglobin A1c % 5.6 Lactic Acid 0.6 Calcium 8.5 D Total Bilirubin 0.5 Direct Bilirubin 0.2 AST 55 H ALT 51 H Alkaline Phosphatase 80 C-Reactive Protein 4.03 H Total Protein 6.0 L Albumin 3.4 L Assessment and Plan Final Anesthetic Review Family History of Problems with Anesthesia: No History of Problems with Anesthesia: No Documented by User: Nelly Mclean DO 05/12/25 13:26 HPI - Anesthesia Eval Consult details Narrative: 50 yr old male for I&D right finger HRs in 40s No CP/SOB with walking daily No recent illness: +smoker, smoker's cough Opioid abuse: on methadone 140 mg daily Reports daily cocaine and daily heroin use. Positive tox screen for opiates and cocaine. [facility] Family History Family history of problems with anesthesia: No Surgical History History of Problems with Anesthesia: No Social History Social History Alcohol intake: former Patient Tobacco Use Status: Current everyday Tobacco user Smoked in Last 30 Days: Yes Use of substances other than those prescribed or required for medical reasons: Yes Substance Use Type: Heroin Substance Use Frequency: Daily Last Used Substance: Days (ago) Advance Directives: No Do you have a plan to hurt others: No Plan Meds Allergies Allergy/AdvReac Type Severity Reaction Status Date / Time No Known Allergies Allergy Verified 05/12/25 06:18 Home Medications ?Medication ?Instructions ?Recorded ?Confirmed ?Last Taken ?Type methadone 10 mg/mL oral 140 mg PO DAILY 05/12/25 05/12/25 05/09/25 08:41 History concentrate (Methadose) Exam Exam Date and Time: 05/12/25 1319 Height,Weight and Vital Signs: Height 5 ft 11 in Weight 90.718 kg Last Vital Signs Temp 98.6 F 05/12/25 08:04 Pulse 46 L 05/12/25 09:52 Resp 14 05/12/25 09:52 BP 119/70 05/12/25 09:52 Pulse Ox 96 05/12/25 09:52 O2 Del Method Room Air 05/12/25 09:52 Vital Signs Temperature 98.4 F 05/12/25 06:15 Pulse Rate 52 05/12/25 06:15 Respiratory Rate 16 05/12/25 06:15 Blood Pressure 116/64 05/12/25 06:15 Pulse Oximetry 100 05/12/25 06:15 Oxygen Delivery Method Room Air 05/12/25 06:15 Temperature 98.5 F 05/12/25 12:36 Pulse Rate 45 L 05/12/25 12:36 Respiratory Rate 16 05/12/25 12:36 Blood Pressure 135/80 05/12/25 12:36 Pulse Oximetry 96 05/12/25 12:36 Oxygen Delivery Method Room Air 05/12/25 12:36 Airway Mallampati Class: II TM Dist: >3cm Neck ROM: Full Loose/Missing/Broken Teeth: No (patient denies any loose or broken teeth) Heart: S1S2 Lungs: CTAB Assessment and Plan Assessment Anesthesia Assessment: Anesthesia Plan Discussed and Chart Reviewed Final Anesthetic Review Family History of Problems with Anesthesia: No History of Problems with Anesthesia: No NPO: Yes ASA Class: III and Emergency (will proceed if surgeon deems the case emergent) Final Preanesthetic Review: No Changes in Pt Med Stat, Meds/Allgs Chart Reviewed, Consent Obtained/Reviewed and Anes Risks/Benef Reviewed Patient Risk: High Procedure Risk: Low Anesthetic Plan Anesthetic Plan: GA and Agree w/ Assess. and Plan Disposition: Standard PACU
--- NOTE | 2025-05-12 14:25 | MHC.SHP ---
Pre-Procedural Eval Section A - 24 Hr Update-Section A only Date of Service: 05/12/25 The patient is an INPATIENT: Yes Changes since office visit: No Cold of Flu in the past 2 weeks, No New Medical Problems, No Changes in Medication and No Patient answered all questions The patient has been examined within 24 hours of the surgical procedure. The History & Physical has been completed within 30 days and I have reviewed it.: Yes Section B - Complete if H&P > 30 days Chief Complaint: Right Index Tenosynovitis Allergies: Allergies Allergy/AdvReac Type Severity Reaction Status Date / Time No Known Allergies Allergy Verified 05/12/25 06:18 Plan I have reviewed the history and physical and performed a pertinent physical examination on my patient. No changes have occurred unless specified. Time Spent With Patient Time: Total time managing care of this patient today ____ minutes.
--- NOTE | 2025-05-12 14:28 | P.CONOP_ITS ---
History of Present Illness HPI Consult date: 05/12/25 Chief complaint: Right Index Tenosynovitis Narrative: Right index finger tenosynovitis [facility] Social History Social History Alcohol intake: former Patient Tobacco Use Status: Current everyday Tobacco user Smoked in Last 30 Days: Yes Use of substances other than those prescribed or required for medical reasons: Yes Substance Use Type: Heroin Substance Use Frequency: Daily Last Used Substance: Days (ago) Advance Directives: No Do you have a plan to hurt others: No Plan Meds Allergies Allergy/AdvReac Type Severity Reaction Status Date / Time No Known Allergies Allergy Verified 05/12/25 06:18 Home Medications ?Medication ?Instructions ?Recorded ?Confirmed ?Last Taken ?Type methadone 10 mg/mL oral 140 mg PO DAILY 05/12/2505/09/25 08:41 History concentrate (Methadose) Physical Exam 2 Vital Signs: Vital Signs: Last Vital Signs Temp 98.5 F 05/12/25 12:36 Pulse 45 L 05/12/25 12:36 Resp 16 05/12/25 12:36 BP 135/80 05/12/25 12:36 Pulse Ox 96 05/12/25 12:36 O2 Del Method Room Air 05/12/25 12:36 BMI result Body Mass Index 27.9 Extrem: Other: Right index finger sausage digit with TTP along sheath and pain with passive extension. Resting uncomfortably in flexion. Results Labs 05/12/25 07:26 05/12/25 07:26 Labs: Abnormal lab results 05/12/25 05/12/25 Range/Units 07:26 09:49 WBC 12.1 H (4.8-10.8) X10*3/uL RBC 3.80 L (4.60-5.80) X10*6/uL Hgb 11.6 L (14.0-18.0) g/dl Hct 33.7 L D (42.0-52.0) % MPV 9.0 L (9.4-12.4) fL Immature Gran % (Auto) 0.5 H (0.0-0.4) % Neut % (Auto) 77.1 H (45-73) % Lymph % (Auto) 11.5 L (20-40) % Abs Immat Gran (auto) 0.06 H (0.00-0.03) X10*3/uL Absolute Neuts (auto) 9.3 H (2.0-8.3) x10*3/uL BUN 18 H (9-16) mg/dL AST 55 H (5-37) U/L ALT 51 H (0-40) U/L C-Reactive Protein 4.03 H (< or = 0.50) mg/dL Total Protein 6.0 L (6.5-8.0) g/dL Albumin 3.4 L (3.5-5.0) g/dL Urine Opiates Screen POSITIVE H (Not Detect) Urine Methadone Screen Positive H (Not Detect) ng/mL Urine Fentanyl Screen POSITIVE H (Not Detect) Urine Cocaine Screen POSITIVE H (Not Detect) H & H 05/12/25 Range/Units 07:26 Hgb 11.6 L (14.0-18.0) g/dl Hct 33.7 L D (42.0-52.0) % All other labs normal. Assessment and Plan (1) Infection of finger: Status: Acute (2) Flexor tenosynovitis of finger: Status: Acute Plan Operative debridement. I spoke with patient. I discussed the risks benefits and alternatives including but not limited to the risk of pain, infection, stiffness, need for further surgery as well as potential medical complications such as blood clots, pulmonary embolism and cardiac complications. He is + for Fentanyl/cocaine so this is an emergent case. I explained the risk oif intra- operative cardiac complications and even and he expressed understanding. Procedures Date of Service Date of Service: 05/12/25
--- NOTE | 2025-05-12 14:34 | PC.NURSE ---
Dr. Mclean aware of toxicology screen results. Okay to proceed per dr. mclean
--- NOTE | 2025-05-12 14:35 | PC.NURSE ---
report received from des sullivan rn. author to check consents and sign preop record after and sign patient out of preop.
--- NOTE | 2025-05-12 15:26 | P.BOP_ITS ---
Brief Operative Note Date of Service: 05/12/25 Pre-op diagnosis: Right index finger flexor tenosynovitis Post-op diagnosis: same Procedure: open flexor tenosynovectomy, incision and debridement right index finger Implants: none Surgeon: Darshan Brar MD Anesthesia: GLMA and local Was an Plant Technician/Control Room Operator used for this Procedure?: No Estimated blood loss (mL): 5 Tourniquet time (min): 15 IV fluids (mL): 500 Pathology: other Condition: stable Disposition: PACU
--- NOTE | 2025-05-12 16:52 | PHA.MEDREC ---
Addendum entered by Michael Bal RP 05/12/25 17:13: Reviewed by [facility] Original Note: Pharmacy Consult ? Medication Reconciliation Pharmacy has completed the medication reconciliation. Spoke with pt and he stated he was not taking any prescription or OTC medications at this time.
--- NOTE | 2025-05-12 16:57 | PHA.PROG ---
Admission Date/Time: May 12, 2025 09:46 Indication: SSSI Weight in k.718 kg Serum Creatinine - Last 168 Hours 05/12/25 07:26 Creatinine 0.89 Estimated CrCl and GFR - Last 168 Hours 05/12/25 07:26 Estim Creat Clear Calc 113.1 Estimated GFR > 60 Vancomycin Loading Dose: 2,000 MG Current Vancomycin Dosing Regimen: 1,000 MG Q12H Vancomycin Monitoring using AUC goal of 400 - 600 range with trough as surrogate marker: 425, 13.1 Date and Time for next Vancomycin Level to be drawn: 05/13 @ 1900 Pharmacist Comments on Vancomycin Plan: Vancomycin dosing will take advantage of [employer] as a clinical decision support tool that uses Bayesian modeling to calculate individual patient's pharmacokinetic parameters and forecast the patient's drug concentration time course with the target goal AUC 24 range of 400 - 600 mg/L/hr.
[2025-05-12] MEDS: Lactated Ringers 1,000 ML 100 ML IVCONT (17:14)
[2025-05-12] MEDS: 0.9 % Sodium Chloride Flush 3 ML SYRINGE IVFLUSH ×2 (17:14→22:14)
--- NOTE | 2025-05-12 18:15 | PM.IMCN ---
History of Present Illness Data of Consult Service Date: 05/12/25 Requesting physician: Jennifer Michaels Primary Care Provider: [facility] Reason for consult: Routine medical management This is a 50-year-old male with history of polysubstance abuse who presents to the 2- 3 day history of worsening pain. He denies any associated fever. CT scan showed soft tissue edema without subcutaneous emphysema phlegmon/cellulitis can not be excluded. Patient was seen by Orthopedic surgery and diagnosed with right index finger flexor tenosynovitis and was taken to the OR for incision and debridement of the right index finger. The hospitalists were asked to see him for routine medical management. Patient denies having the chronic medical conditions or taking any medication daily basis although methadone as listed on his medication list. Patient was seen after surgery, he is arousable to verbal stimuli, alert and oriented and able to answer all questions appropriately. He is observed sitting up in bed eating dinner. He denies any dizziness, shortness and breath, chest pain. His pain is currently controlled at this time. Review of Systems Review of Systems: Yes all other systems are reviewed and are negative Constitutional: Constitutional: Denies chills and Denies fever(s) Cardiovascular: Cardiovascular: Denies chest pain, Denies palpitations and Denies dyspnea Respiratory: Respiratory: Denies cough and Denies dyspnea Gastrointestinal: Gastrointestinal: Denies abdominal pain, Denies nausea and Denies vomiting Endocrine: Endocrine: Denies palpitations [facility] Social History Household Members: Unknown / Unable to assess Housing: Unknown / Unable to assess Alcohol intake: former Patient Tobacco Use Status: Tobacco use Unknown Smoked in Last 30 Days: Yes Use of substances other than those prescribed or required for medical reasons: Yes Substance Use Type: Heroin Substance Use Frequency: Daily Last Used Substance: Days (ago) Advance Directives: No Do you have a plan to hurt others: No Plan Recently lost weight without trying: Unsure How much weight loss: Unsure Meds Allergies Allergy/AdvReac Type Severity Reaction Status Date / Time No Known Allergies Allergy Verified 05/12/25 06:18 Active Medications: Current Medications Acetaminophen (Acetaminophen 325 Mg Tablet) 650 mg PO Q6H PRN PRN Reason: Pain, Mild 1-3,fever,headache Celecoxib (Celecoxib 200 Mg Capsule) 200 mg PO BID [facility] Lactated Ringer's (Lr) 1,000 mls @ 100 mls/hr IVCONT .Q10H [facility] Last Admin: 05/12/25 17:14 Dose: 100 mls/hr Vancomycin HCl 1,000 mg/ (Sodium Chloride) 270 mls @ 270 mls/hr IV Q12H [facility] Magnesium Hydroxide (Milk Of Magnesia 30 Ml Oral.Susp) 30 ml PO DAILY PRN PRN Reason: Constipation Ondansetron HCl (Ondansetron Hcl 4 Mg/2 Ml Vial) 4 mg IVPUSH Q8H PRN PRN Reason: Nausea and Vomiting Oxycodone HCl (Oxycodone Hcl Immed Release 5 Mg Tablet) 5 mg PO Q4H PRN PRN Reason: Pain, Moderate(Pain Scale 4-6) Pharmacy Consult (Consult Rx Vancomycin Dosing) 1 each MISCELLANE DAILY PRN PRN Reason: Consult order Sodium Chloride (0.9 % Sodium Chloride Flush 3 Ml Syringe) 3 ml IVFLUSH QSHIFT [facility] Last Admin: 05/12/25 17:14 Dose: 3 ml Home Medications ?Medication ?Instructions ?Recorded ?Confirmed ?Last Taken ?Type methadone 10 mg/mL oral 140 mg PO DAILY 05/12/25 05/12/25 05/09/25 08:41 History concentrate (Methadose) Physical Exam Vital Signs and Narrative: Vital Signs: Last Vital Signs Temp 97.8 F 05/12/25 17:08 Pulse 45 L 05/12/25 17:08 Resp 16 05/12/25 17:08 BP 156/83 H 05/12/25 17:08 Pulse Ox 99 05/12/25 17:08 O2 Del Method Room Air 05/12/25 17:08 BMI result Body Mass Index 27.9 Const: General: cooperative, comfortable and alert Nutritional Appearance: average body habitus Orientation/consciousness: patient oriented x3 Resp: Effort & Inspection: normal respiratory effort, able to speak in complete sentences, no respiratory distress and no use of accessory muscles Auscultation: clear to auscultation bilaterally Cardio: Rate: bradycardic GI: Inspection: No distended Neuro: General: patient oriented x3 Extrem: Other: right hand splinted Results Labs 05/12/25 07:26 05/12/25 07:26 Labs: Laboratory Results - last 24 hr 05/12/25 05/12/25 05/12/25 07:26 08:37 09:49 MCV 88.7 MCH 30.5 MCHC 34.4 RDW 13.3 Plt Count 226 MPV 9.0 L Immature Gran % (Auto) 0.5 H Neut % (Auto) 77.1 H Lymph % (Auto) 11.5 L [place] % (Auto) 10.0 Eos % (Auto) 0.7 Baso % (Auto) 0.2 Lymph # (Auto) 1.4 [place] # (Auto) 1.2 Eos # (Auto) 0.1 Baso # (Auto) 0.0 Abs Immat Gran (auto) 0.06 H Absolute Neuts (auto) 9.3 H Absolute Nucleated RBC 0.000 Nucleated RBC % (auto) 0.0 Anion Gap 13 Estim Creat Clear Calc 113.1 Estimated GFR > 60 Random Glucose 112 Estimat Average Glucose 114 Hemoglobin A1c % 5.6 Lactic Acid 0.6 Calcium 8.5 D Total Bilirubin 0.5 Direct Bilirubin 0.2 AST 55 H ALT 51 H Alkaline Phosphatase 80 C-Reactive Protein 4.03 H Total Protein 6.0 L Albumin 3.4 L Urine Opiates Screen POSITIVE H Ur Buprenorphine Scrn Not Detected Ur Oxycodone Screen Not Detected Urine Methadone Screen Positive H Urine Fentanyl Screen POSITIVE H Ur Barbiturates Screen Not Detected Ur Phencyclidine Scrn Not Detected Ur Amphetamines Screen Not Detected U Benzodiazepines Scrn Not Detected Urine Cocaine Screen POSITIVE H U Marijuana (THC) Screen Not Detected Imaging Radiologist's Impressions: Impressions Hand CT 05/12/25 08:57 IMPRESSION: Soft tissue edema pattern without subcutaneous emphysema or fluid collections involving the index finger of the right hand. Phlegmon/cellulitis cannot be excluded. No osteomyelitis based upon x-ray. Electronically signed by: Nav Vergara MD 05/12/2025 10:03 AM EDT Assessment and Plan (1) Sinus bradycardia: Status: Acute (2) Polysubstance use disorder: Status: Acute Plan This is a 50-year-old male with history of polysubstance use who presented with hand pain found to have right index finger tenosynovitis status post debridement Right index finger tenosynovitis s/p I&D 05/12 On vancomycin Wound culture, blood cultures pending Management per Orthopedic surgery Polysubstance use on methadone Tox screen positive for opiates, methadone, fentanyl, cocaine Addiction Medicine consult Take home Narcan on discharge Sinus bradycardia Asymptomatic. Blood pressure stable Likely due to methadone May need to resume methadone at lower dose, Addiction Medicine consulted Potassium 4.4, we will check magnesium Mild transaminitis Somewhat chronic Outpatient follow-up Thank you for allowing us to participate in the care of this patient, we will follow along with you
--- NOTE | 2025-05-12 19:00 | PC.NURSE ---
193: This RN resumed care at 1900, on initial assessment patient was very drowsy and lethargic, arousable to name. Pt reporting 10/0 pain to R hand described as throbbing. POD0, AOx4, speaks in full sentences, LSC, BSx4,abd soft and non-tender, AARON wrap to R hand CDI, with splint. IVF running. Meds given per NOV. 2099: Dr. Watkins made aware ther are no orders for pain meds that range from (7-10) for pain, new orders placed. 2199: Meds given per MAR, with good effect patient allowed to sleep at this time, bed in lowest position, bed alarm on, Call phillip within reach, will continue to reassess
[2025-05-12 19:10] LABS: Magnesium 2.0 mg/dL (1.6-2.6)
[2025-05-12] MEDS: oxyCODONE HCl Immed Release 5 MG TABLET PO (20:15)
--- NOTE | 2025-05-12 20:15 | PC.NURSE ---
2015: per patients request oxycodone for 10/10 pain to R hand.
[2025-05-13] MEDS: oxyCODONE HCl Immed Release 5 MG TABLET PO ×3 (02:10→17:16)
[2025-05-13] MEDS: Lactated Ringers 1,000 ML 100 ML IVCONT ×2 (02:13→15:54)
[2025-05-13 03:33] VITALS: BP 144/70; PULSE 53; RESP 16; TEMP 36.1; O2SAT 97
[2025-05-13 06:26] LABS: MANUAL DIFF FLAG NO
[2025-05-13 06:28] LABS: Hematocrit 32.9 % (42.0-52.0); Hemoglobin 11.0 g/dl (14.0-18.0); Imm Gran Abs Auto 0.07 X10*3/uL (0.00-0.03); Imm Gran Pct Auto 0.6 % (0.0-0.4); Lymphocytes Absolute Auto 1.1 X10*3/uL (1.2-4.9); Mean Corpuscular HGB Conc 33.4 g/dl (31.0-36.0); Mean Corpuscular Hemoglobin 30.0 pg (27.0-33.0); Mean Corpuscular Volume 89.6 fL (80.0-98.0); NRBC Abs Auto 0.000 X10*3/uL (0.0-0.012); NRBC Pct Auto 0.0 /100WBC (0.0-0.2); Platelet Count 224 X10*3/uL (160-400); Red Blood Count 3.67 X10*6/uL (4.60-5.80); White Blood Count 11.2 X10*3/uL (4.8-10.8)
[2025-05-13 06:41] LABS: Anion Gap 9 (12-20); Blood Urea Nitrogen 12 mg/dL (9-16); Calcium 8.1 mg/dL (8.4-10.2); Carbon Dioxide 27 mmol/L (22-29); Chloride 106 mmol/L (96-108); Creatinine Clr Calc Pharmacy 121.3; Estimated Glomerular Filt Rate > 60; Potassium 4.0 mmol/L (3.3-5.1); Sodium 138 mmol/L (135-145)
[2025-05-13 06:59] VITALS: BP 143/82; PULSE 48; RESP 12; TEMP 37.2; O2SAT 98
--- NOTE | 2025-05-13 08:22 | P.PNIM_ITS ---
Subjective Subjective Date of Service: 05/13/25 Interval History: seen and examined this morning follow up for medical consultation no complains this am - sleepy but arousable to verbal stimuli and answering questions appropriately Review of Systems Review of Systems: Yes all other systems are reviewed and are negative Constitutional Constitutional: Denies chills and Denies fever(s) ENT Ears, Nose, Mouth, and Throat: Denies dizziness Cardiovascular Cardiovascular: Denies chest pain, Denies palpitations and Denies dyspnea Respiratory Respiratory: Denies dyspnea Neurologic Neurologic: Denies dizziness Endocrine Endocrine: Denies palpitations Physical Exam 2 Vital Signs: Vital Signs: Last Vital Signs Temp 99.0 F 05/13/25 06:59 Pulse 48 L 05/13/25 06:59 Resp 12 05/13/25 06:59 BP 143/82 H 05/13/25 06:59 Pulse Ox 98 05/13/25 06:59 O2 Del Method Room Air 05/13/25 06:59 BMI result Body Mass Index 27.9 Const: General: cooperative, comfortable and alert Nutritional Appearance: average body habitus Orientation/consciousness: patient oriented x3 Resp: Effort & Inspection: normal respiratory effort, able to speak in complete sentences, no respiratory distress and no use of accessory muscles A uscultation: clear to auscultation bilaterally Cardio: Rate: bradycardic GI: Inspection: No distended Neuro: General: patient oriented x3 Extrem: Other: right hand splinted Objective Data Active Medications Acetaminophen (Acetaminophen 325 Mg Tablet) 650 mg PO Q6H PRN PRN Reason: Pain, Mild 1-3,fever,headache Celecoxib (Celecoxib 200 Mg Capsule) 200 mg PO BID [facility] Last Admin: 05/12/25 20:17 Dose: 200 mg Documented By: HANK Hydromorphone HCl (Hydromorphone Hcl 1 Mg/Ml Syringe) 1 mg IVPUSH Q4H PRN; Protocol PRN Reason: Pain, Severe (Pain Scale 7-10) Last Admin: 05/13/25 04:28 Dose: 1 mg Documented By: HANK Lactated Ringer's (Lr) 1,000 mls @ 100 mls/hr IVCONT .Q10H [facility] Last Admin: 05/13/25 02:13 Dose: 100 mls/hr Documented By: HANK Vancomycin HCl 1,000 mg/ (Sodium Chloride) 270 mls @ 270 mls/hr IV Q12H [facility] Last Infusion: 05/12/25 21:17 Dose: Infused Documented By: HANK Magnesium Hydroxide (Milk Of Magnesia 30 Ml Oral.Susp) 30 ml PO DAILY PRN PRN Reason: Constipation Methadone HCl (Methadone Hcl 20 Mg/2 Ml Oral.Conc) 140 mg PO DAILY@0800 [facility] Ondansetron HCl (Ondansetron Hcl 4 Mg/2 Ml Vial) 4 mg IVPUSH Q8H PRN PRN Reason: Nausea and Vomiting Oxycodone HCl (Oxycodone Hcl Immed Release 5 Mg Tablet) 5 mg PO Q4H PRN PRN Reason: Pain, Moderate(Pain Scale 4-6) Last Admin: 05/13/25 02:10 Dose: 5 mg Documented By: HANK Pharmacy Consult (Consult Rx Vancomycin Dosing) 1 each MISCELLANE DAILY PRN PRN Reason: Consult order Sodium Chloride (0.9 % Sodium Chloride Flush 3 Ml Syringe) 3 ml IVFLUSH QSHIFT [facility] Last Admin: 05/13/25 08:06 Dose: Not Given Documented By: DOTTIE Non-Admin Reason: IV Running Labs 05/13/25 06:11 05/13/25 06:11 Labs: Laboratory Results - last 24 hr 05/12/25 05/12/25 05/12/25 07:26 08:37 09:49 MCV MCH MCHC RDW Plt Count MPV Immature Gran % (Auto) Neut % (Auto) Lymph % (Auto) Robertson % (Auto) Eos % (Auto) Baso % (Auto) Lymph # (Auto) [place] # (Auto) Eos # (Auto) Baso # (Auto) Abs Immat Gran (auto) Absolute Neuts (auto) Absolute Nucleated RBC Nucleated RBC % (auto) Anion Gap Estim Creat Clear Calc Estimated GFR Fasting Glucose Lactic Acid 0.6 Calcium Magnesium 2.0 Urine Opiates Screen POSITIVE H Ur Buprenorphine Scrn Not Detected Ur Oxycodone Screen Not Detected Urine Methadone Screen Positive H Urine Fentanyl Screen POSITIVE H Ur Barbiturates Screen Not Detected Ur Phencyclidine Scrn Not Detected Ur Amphetamines Screen Not Detected U Benzodiazepines Scrn Not Detected Urine Cocaine Screen POSITIVE H U Marijuana (THC) Screen Not Detected 05/13/25 06:11 MCV 89.6 MCH 30.0 MCHC 33.4 RDW 13.4 Plt Count 224 MPV 9.3 L Immature Gran % (Auto) 0.6 H Neut % (Auto) 79.2 H Lymph % (Auto) 9.9 L [place] % (Auto) 9.6 Eos % (Auto) 0.4 Baso % (Auto) 0.3 Lymph # (Auto) 1.1 L [place] # (Auto) 1.1 Eos # (Auto) 0.0 Baso # (Auto) 0.0 Abs Immat Gran (auto) 0.07 H Absolute Neuts (auto) 8.9 H Absolute Nucleated RBC 0.000 Nucleated RBC % (auto) 0.0 Anion Gap 9 L Estim Creat Clear Calc 121.3 Estimated GFR > 60 Fasting Glucose 137 H Lactic Acid Calcium 8.1 L Magnesium Urine Opiates Screen Ur Buprenorphine Scrn Ur Oxycodone Screen Urine Methadone Screen Urine Fentanyl Screen Ur Barbiturates Screen Ur Phencyclidine Scrn Ur Amphetamines Screen U Benzodiazepines Scrn Urine Cocaine Screen U Marijuana (THC) Screen Microbiology Microbiology Results: Microbiology 05/12/25 08:37 Blood Culture - Preliminary Blood - Venous Prelim: GPC Gram Stain only Assessment and Plan (1) Polysubstance use disorder: Status: Acute (2) Sinus bradycardia: Status: Acute Plan This is a 50-year-old male with history of polysubstance use who presented with hand pain found to have right index finger tenosynovitis status post debridement Right index finger tenosynovitis POD #1 s/p I&D 05/12 Wound pending blood cultures 1/2 growing GPC - follow final speciation continue vancomycin Management per Orthopedic surgery Polysubstance use on methadone Tox screen positive for opiates, methadone, fentanyl, cocaine; extended panel pending Addiction Medicine following Take home Narcan on discharge Sinus bradycardia Asymptomatic. Blood pressure stable Likely due to methadone received full dose of methadone yesterday and HR remained stable continue methadone lytes stable Mild transaminitis Somewhat chronic Outpatient follow-up dvt ppx as per primary team Thank you for allowing us to participate in the care of this patient, we will follow along with you Quality Stroke Does the patient have a stroke diagnosis?: No VTE Prior VTE?: No VTE Risk Level:: Medical - moderate - high VTE Device Contraindication: Treatment Not Indicated VTE Drug Contraindication: Treatment Not Indicated
--- NOTE | 2025-05-13 08:26 | P.CONOP_ITS ---
History of Present Illness HPI Consult date: 05/12/25 Chief complaint: Right Index Tenosynovitis Narrative: Mr. Arnold is a 50-year-old right hand dominant male who presented to the emergency room after reportedly 2 days of right index pain and swelling that had been progressing. He has a PMH significant for polysubstance use disorder on Methadone. 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 While in the ED x-rays of te hand were obtained and negative for any fracture or foreign body. Therefore a CT was obtained and significant for fluid collection. The orthopedic service was consulted for evaluation. Review of Systems 2 Review of Systems: Yes all other systems are reviewed and are negative PMFSH Social History Social History Household Members: Unknown / Unable to assess Housing: Unknown / Unable to assess Alcohol intake: former Patient Tobacco Use Status: Tobacco use Unknown Smoked in Last 30 Days: Yes Use of substances other than those prescribed or required for medical reasons: Yes Substance Use Type: Heroin Substance Use Frequency: Daily Last Used Substance: Days (ago) Currently Displaying Signs/Symptoms of Drug Intoxication Withdrawal: No Advance Directives: No Do you have a plan to hurt others: No Plan Recently lost weight without trying: Unsure How much weight loss: Unsure Meds Allergies Allergy/AdvReac Type Severity Reaction Status Date / Time No Known Allergies Allergy Verified 05/12/25 06:18 Active Medications: Current Medications Acetaminophen (Acetaminophen 325 Mg Tablet) 650 mg PO Q6H PRN PRN Reason: Pain, Mild 1-3,fever,headache Celecoxib (Celecoxib 200 Mg Capsule) 200 mg PO BID [facility] Last Admin: 05/12/25 20:17 Dose: 200 mg Hydromorphone HCl (Hydromorphone Hcl 1 Mg/Ml Syringe) 1 mg IVPUSH Q4H PRN; Protocol PRN Reason: Pain, Severe (Pain Scale 7-10) Last Admin: 05/13/25 04:28 Dose: 1 mg Lactated Ringer's (Lr) 1,000 mls @ 100 mls/hr IVCONT .Q10H [facility] Last Admin: 05/13/25 02:13 Dose: 100 mls/hr Vancomycin HCl 1,000 mg/ (Sodium Chloride) 270 mls @ 270 mls/hr IV Q12H [facility] Last Infusion: 05/12/25 21:17 Dose: Infused Magnesium Hydroxide (Milk Of Magnesia 30 Ml Oral.Susp) 30 ml PO DAILY PRN PRN Reason: Constipation Methadone HCl (Methadone Hcl 20 Mg/2 Ml Oral.Conc) 140 mg PO DAILY@0800 [facility] Ondansetron HCl (Ondansetron Hcl 4 Mg/2 Ml Vial) 4 mg IVPUSH Q8H PRN PRN Reason: Nausea and Vomiting Oxycodone HCl (Oxycodone Hcl Immed Release 5 Mg Tablet) 5 mg PO Q4H PRN PRN Reason: Pain, Moderate(Pain Scale 4-6) Last Admin: 05/13/25 02:10 Dose: 5 mg Pharmacy Consult (Consult Rx Vancomycin Dosing) 1 each MISCELLANE DAILY PRN PRN Reason: Consult order Sodium Chloride (0.9 % Sodium Chloride Flush 3 Ml Syringe) 3 ml IVFLUSH QSHIFT [facility] Last Admin: 05/13/25 08:06 Dose: Not Given Home Medications ?Medication ?Instructions ?Recorded ?Confirmed ?Last Taken ?Type methadone 10 mg/mL oral 140 mg PO DAILY 05/12/2505/09/25 08:41 History concentrate (Methadose) Physical Exam 2 Vital Signs: Vital Signs: Last Vital Signs Temp 99.0 F 05/13/25 06:59 Pulse 48 L 05/13/25 06:59 Resp 12 05/13/25 06:59 BP 143/82 H 05/13/25 06:59 Pulse Ox 98 05/13/25 06:59 O2 Del Method Room Air 05/13/25 06:59 BMI result Body Mass Index 27.9 Const: General: cooperative, healthy appearing and no acute distress Resp: Effort & Inspection: normal respiratory effort and able to speak in complete sentences Extrem: Other: Right index finger held in flexion. Extreme pain with passive extension. Extreme tenderness to palpation along the flexor tendon more noted at the middle phalanx. Reports numbness and tingling at the finger tip. Capillary refill is brisk. Psych: Appearance: grossly normal Mental Status: mental status grossly normal Attitude: cooperative Results Labs 05/13/25 06:11 05/13/25 06:11 Labs: Abnormal lab results 05/12/25 05/13/25 Range/Units 09:49 06:11 WBC 11.2 H (4.8-10.8) X10*3/uL RBC 3.67 L (4.60-5.80) X10*6/uL Hgb 11.0 L (14.0-18.0) g/dl Hct 32.9 L (42.0-52.0) % MPV 9.3 L (9.4-12.4) fL Immature Gran % (Auto) 0.6 H (0.0-0.4) % Neut % (Auto) 79.2 H (45-73) % Lymph % (Auto) 9.9 L (20-40) % Lymph # (Auto) 1.1 L (1.2-4.9) X10*3/uL Abs Immat Gran (auto) 0.07 H (0.00-0.03) X10*3/uL Absolute Neuts (auto) 8.9 H (2.0-8.3) x10*3/uL Anion Gap 9 L (12-20) Fasting Glucose 137 H (60-99) mg/dL Calcium 8.1 L (8.4-10.2) mg/dL Urine Opiates Screen POSITIVE H (Not Detect) Urine Methadone Screen Positive H (Not Detect) ng/mL Urine Fentanyl Screen POSITIVE H (Not Detect) Urine Cocaine Screen POSITIVE H (Not Detect) H & H 05/12/25 05/13/25 Range/Units 07:26 06:11 Hgb 11.6 L 11.0 L (14.0-18.0) g/dl Hct 33.7 L D 32.9 L (42.0-52.0) % All other labs normal. Assessment and Plan (1) Flexor tenosynovitis of finger: Status: Acute (2) Polysubstance use disorder: Status: Acute Plan The patient was admitted to the orthopedic service. I discussed the case with Dr. Brar and explained the extent of the injury to the patient and options available which include surgical intervention. I explained the procedure in detail along with the length of recovery and rehab course. I explained the risk, benefits and alternatives. Risk including, but not limited to infection, blood clots, bleeding, non union or malunion and nerve/tissue damage to surrounding areas. I answered all their questions and with their understanding they have consented to move forward with emergent irrigation of the right index finger. Of note, the patient had a positive utox for cocaine, opioids, fentanyal, and methadone. however, given the nature of flexor tenosynovitis emergent surgical intervention is required. Procedures Date of Service Date of Service: 05/13/25
--- NOTE | 2025-05-13 08:34 | PM.PNORT ---
Subjective Subjective Date of Service: 05/13/25 Interval history: POD1 s/p right index finger I&D Patient is resting in bed comfortably No overnight events Allowed to sleep Physical Exam Vital Signs: Vital Signs: Last Vital Signs Temp 99.0 F 05/13/25 06:59 Pulse 48 L 05/13/25 06:59 Resp 12 05/13/25 06:59 BP 143/82 H 05/13/25 06:59 Pulse Ox 98 05/13/25 06:59 O2 Del Method Room Air 05/13/25 06:59 BMI result Body Mass Index 27.9 Const: General: cooperative, healthy appearing and no acute distress Resp: Effort & Inspection: normal respiratory effort and able to speak in complete sentences Extrem: Other: Patient allowed to sleep Splint is c/d/i Psych: Appearance: grossly normal Mental Status: mental status grossly normal Attitude: cooperative Procedures Date of Service Date of Service: 05/13/25 Progress Note: A&P Assessment and plan (1) Flexor tenosynovitis of finger: Status: Acute Plan Keep splint c/d/i Pain management as appropriate Patient had some bradycardia yesterday evening - Medicine was consulted for management If dressing becomes saturated - Nursing to please perform a dressing change Dressing: -Xeroform -Gauze -Kirlex -Back into splint with AARON Time Spent With Patient Time: Total time managing care of this patient today ____ minutes. Quality Stroke Does the patient have a stroke diagnosis?: No VTE Prior VTE?: No VTE Risk Level:: Medical - moderate - high VTE Device Contraindication: N/A - Device Ordered VTE Drug Contraindication: N/A - Med Ordered
[2025-05-13] MEDS: methADONE HCl 20 MG/2 ML ORAL.CONC 140 MG PO (08:37)
[2025-05-13 15:51] VITALS: BP 144/88; PULSE 56; RESP 18; TEMP 36.9; O2SAT 95
--- NOTE | 2025-05-13 16:31 | MHC.CM.PN ---
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
[2025-05-13 19:46] VITALS: BP 169/91; PULSE 58; RESP 18; TEMP 37; O2SAT 97
[2025-05-13 20:52] VITALS: RESP 16
[2025-05-13] MEDS: Nicotine 14 MG PATCH.TD24 TRANSDERMA (22:19)
[2025-05-13 23:16] VITALS: BP 119/69; PULSE 53; RESP 16; TEMP 36.7; O2SAT 95
[2025-05-14] VITALS (7 sets, daily range): BP systolic 117–155; BP diastolic 71–88; PULSE 45–62; RESP 16–18; TEMP 36.6–37.3; O2SAT 96–98
[2025-05-14] MEDS: Lactated Ringers 1,000 ML 100 ML IVCONT ×2 (01:57→13:16)
[2025-05-14] MEDS: methADONE HCl 20 MG/2 ML ORAL.CONC 140 MG PO (07:21)
--- NOTE | 2025-05-14 08:07 | P.PNIM_ITS ---
Subjective Subjective Date of Service: 05/14/25 Interval History: seen and examined this morning follow up for medical consultation awake, alert; reports pain is controlled Review of Systems Review of Systems: Yes all other systems are reviewed and are negative Constitutional Constitutional: Denies chills and Denies fever(s) Cardiovascular Cardiovascular: Denies chest pain, Denies palpitations and Denies dyspnea Respiratory Respiratory: Denies cough and Denies dyspnea Gastrointestinal Gastrointestinal: Denies abdominal pain, Denies nausea and Denies vomiting Endocrine Endocrine: Denies palpitations Physical Exam 2 Vital Signs: Vital Signs: Last Vital Signs Temp 98.3 F 05/14/25 07:40 Pulse 45 L 05/14/25 07:40 Resp 18 05/14/25 07:40 BP 125/71 05/14/25 07:40 Pulse Ox 98 05/14/25 07:40 O2 Del Method Room Air 05/14/25 07:40 BMI result Body Mass Index 27.9 Const: General: cooperative, comfortable and alert Nutritional Appearance: average body habitus Orientation/consciousness: patient oriented x3 Resp: Effort & Inspection: normal respiratory effort, able to speak in complete sentences, no respiratory distress and no use of accessory muscles A uscultation: clear to auscultation bilaterally Cardio: Rate: bradycardic GI: Inspection: No distended Neuro: General: patient oriented x3 Extrem: Other: right hand splinted Objective Data Active Medications Acetaminophen (Acetaminophen 325 Mg Tablet) 650 mg PO Q6H PRN PRN Reason: Pain, Mild 1-3,fever,headache Celecoxib (Celecoxib 200 Mg Capsule) 200 mg PO BID [facility] Last Admin: 05/13/25 20:52 Dose: 200 mg Documented By: MARY Hydromorphone HCl (Hydromorphone Hcl 1 Mg/Ml Syringe) 1 mg IVPUSH Q4H PRN; Protocol PRN Reason: Pain, Severe (Pain Scale 7-10) Last Admin: 05/14/25 04:35 Dose: 1 mg Documented By: MARY Lactated Ringer's (Lr) 1,000 mls @ 100 mls/hr IVCONT .Q10H [facility] Last Admin: 05/14/25 01:57 Dose: 100 mls/hr Documented By: MARY Vancomycin HCl 1,000 mg/ (Sodium Chloride) 270 mls @ 270 mls/hr IV Q12H [facility] Last Infusion: 05/13/25 21:57 Dose: Infused Documented By: MARY Magnesium Hydroxide (Milk Of Magnesia 30 Ml Oral.Susp) 30 ml PO DAILY PRN PRN Reason: Constipation Methadone HCl (Methadone Hcl 20 Mg/2 Ml Oral.Conc) 140 mg PO DAILY@0800 [facility] Last Admin: 05/14/25 07:21 Dose: 140 mg Documented By: DOTTEI Co-signed By: EDDIE Nicotine (Nicotine 14 Mg Patch.Td24) 14 mg TRANSDERMA DAILY [facility] Last Admin: 05/13/25 22:19 Dose: 14 mg Documented By: MARY Ondansetron HCl (Ondansetron Hcl 4 Mg/2 Ml Vial) 4 mg IVPUSH Q8H PRN PRN Reason: Nausea and Vomiting Oxycodone HCl (Oxycodone Hcl Immed Release 5 Mg Tablet) 5 mg PO Q4H PRN PRN Reason: Pain, Moderate(Pain Scale 4-6) Last Admin: 05/13/25 17:16 Dose: 5 mg Documented By: DOTTIE Pharmacy Consult (Consult Rx Vancomycin Dosing) 1 each MISCELLANE DAILY PRN PRN Reason: Consult order Sodium Chloride (0.9 % Sodium Chloride Flush 3 Ml Syringe) 3 ml IVFLUSH QSHIFT [facility] Last Admin: 05/14/25 07:21 Dose: Not Given Documented By: DOTTIE Non-Admin Reason: IV Running Labs 05/13/25 06:11 05/13/25 06:11 Labs: Laboratory Results - last 24 hr 05/13/25 18:56 Vancomycin Trough 8.2 L Microbiology Microbiology Results: Microbiology 05/12/25 15:01 Gram Stain - Final Finger Right Index Routine Culture - Final Staphylococcus aureus 05/12/25 08:37 Blood Culture - Preliminary Blood - Venous No growth after 24 hours. 05/12/25 08:37 Blood Culture - Preliminary Blood - Venous Prelim: GPC Gram Stain only Assessment and Plan (1) Sinus bradycardia: Status: Acute (2) Polysubstance use disorder: Status: Acute (3) Bacteremia: Status: Acute Plan This is a 50-year-old male with history of polysubstance use who presented with hand pain found to have right index finger tenosynovitis status post debridement Right index finger tenosynovitis/GPC bacteremia POD #2 s/p I&D 05/12 Wound culture growing MSSA blood cultures 1/2 growing GPC - follow final speciation; if MSSA can change to kefzol depending on final culture result may need echo and ID evaluation continue vancomycin for now Management per Orthopedic surgery Polysubstance use on methadone Tox screen positive for opiates, methadone, fentanyl, cocaine; extended panel pending Addiction Medicine following Take home Narcan on discharge Sinus bradycardia Asymptomatic. Blood pressure stable Likely due to methadone HR stable tele monitoring Mild transaminitis Somewhat chronic Outpatient follow-up dvt ppx as per primary team Thank you for allowing us to participate in the care of this patient, we will follow along with you Quality Stroke Does the patient have a stroke diagnosis?: No VTE Prior VTE?: No VTE Risk Level:: Medical - moderate - high VTE Device Contraindication: Treatment Not Indicated VTE Drug Contraindication: Treatment Not Indicated
--- NOTE | 2025-05-14 09:01 | PM.PNORT ---
Subjective Subjective Date of Service: 05/14/25 Interval history: POD2 s/p right index finger I&D Patient is resting in bed comfortably No overnight events Pain is managed Patient reports pain is improving Physical Exam Vital Signs: Vital Signs: Last Vital Signs Temp 98.3 F 05/14/25 07:40 Pulse 45 L 05/14/25 07:40 Resp 18 05/14/25 07:40 BP 125/71 05/14/25 07:40 Pulse Ox 98 05/14/25 07:40 O2 Del Method Room Air 05/14/25 07:40 BMI result Body Mass Index 27.9 Const: General: cooperative, healthy appearing and no acute distress Resp: Effort & Inspection: normal respiratory effort and able to speak in complete sentences Extrem: Other: Right index finger incision site is c/d/i. Packing in place. Mild purulent discharge at the very distal end of the incision site. Able to slightly flex and extend. Reports sensation is intact. Capillary refill is brisk. Psych: Appearance: grossly normal Mental Status: mental status grossly normal Attitude: cooperative Procedures Date of Service Date of Service: 05/14/25 Progress Note: A&P Assessment and plan (1) Flexor tenosynovitis of finger: Status: Acute (2) Polysubstance use disorder: Status: Acute Plan Keep dressing c/d/i Packing remains in place - patient unable to tolerate pull this AM Pain management as appropriate Medicine managing bradycardia episode that occurred on POD0 If dressing becomes saturated - Nursing to please perform a dressing change Dressing: -Xeroform -Gauze -tape -Mesh to help hold in place Pending ID consult NPO after midnight to bring to OR for second I&D with Dr. Pop tomorrow Time Spent With Patient Time: Total time managing care of this patient today ____ minutes. Quality Stroke Does the patient have a stroke diagnosis?: No VTE Prior VTE?: No VTE Risk Level:: Medical - moderate - high VTE Device Contraindication: Treatment Not Indicated VTE Drug Contraindication: Treatment Not Indicated
[2025-05-14] MEDS: Nicotine 14 MG PATCH.TD24 TRANSDERMA (09:26)
[2025-05-14 09:58] LABS: MANUAL DIFF FLAG NO
[2025-05-14 10:02] LABS: Hematocrit 36.3 % (42.0-52.0); Hemoglobin 12.1 g/dl (14.0-18.0); Imm Gran Abs Auto 0.02 X10*3/uL (0.00-0.03); Imm Gran Pct Auto 0.3 % (0.0-0.4); Lymphocytes Absolute Auto 1.1 X10*3/uL (1.2-4.9); Mean Corpuscular HGB Conc 33.3 g/dl (31.0-36.0); Mean Corpuscular Hemoglobin 29.7 pg (27.0-33.0); Mean Corpuscular Volume 89.2 fL (80.0-98.0); NRBC Abs Auto 0.000 X10*3/uL (0.0-0.012); NRBC Pct Auto 0.0 /100WBC (0.0-0.2); Platelet Count 259 X10*3/uL (160-400); Red Blood Count 4.07 X10*6/uL (4.60-5.80); White Blood Count 7.6 X10*3/uL (4.8-10.8)
[2025-05-14 10:23] LABS: Anion Gap 13 (12-20); Blood Urea Nitrogen 10 mg/dL (9-16); Calcium 8.8 mg/dL (8.4-10.2); Carbon Dioxide 25 mmol/L (22-29); Chloride 106 mmol/L (96-108); Creatinine Clr Calc Pharmacy 121.3; Estimated Glomerular Filt Rate > 60; Potassium 4.4 mmol/L (3.3-5.1); Sodium 140 mmol/L (135-145)
--- NOTE | 2025-05-14 12:07 | PM.EVENT ---
Event Note Date of Service: 05/14/25 Event Note: Late entry Addiction consult placed for patient with history of OUD and engaged in treatment with [facility]--methadone Consult requested d/t bradycardia and concern with methadone administration Chart reviewed and case discussed with hospitalist, JACQUES Sanders Patient had received methadone 140mg on 05/12 while in ED HR did not worsen with admisnitration (remained in low 50s throughout the day) Plan: -no change to home dose of methadone --continue to monitor and address as needed -UDS sent off to check presence of medetomidine, which has been in the local drug supply and known to cause bradycardia -no other follow up indicated from [facility] at this time, please reconsult if necessary Time Spent With Patient Time: Total time managing care of this patient today ____ minutes.
--- NOTE | 2025-05-14 15:38 | MHC.RECOVRN ---
Attempted to meet with pt in [id number] following consult placed to Addiction Medicine for polysubstance use Pt was sitting in bed, watching TV in no apparent distress. Pt reports adequate pain managment following I&D on rigjt index finger. Pt is guarded with blunted affect and minimal eye contact. Intention was to discuss substance and recovery/support options. Pt is currently receiving 140mg Methadone in the community at [facility] Pt declines intervention, [facility], or appt for treatment related to [facility] at this time.
--- NOTE | 2025-05-14 20:26 | PM.EVENT ---
Event Note Date of Service: 05/14/25 Event Note: Nursing alerted the Orthopedic on-call service that the patient was leaving AMA. Nursing instructed to perform a dressing change and pull packing. Unfortunately the patient was unable to tolerate packing pull at bedside and declined any additional attempts. The incision site was dressed Cultures reviewed and sensitive to Bactrim: Bactrim DS 800-160mg PO BID #14 was sent to [facility]: [facility] on [facility]. -Nurse informed patient A workload message has been sent to the Orthopedic workgroup to make an urgent appointment in the office tomorrow for packing pull. Time Spent With Patient Time: Total time managing care of this patient today ____ minutes.
--- NOTE | 2025-05-14 23:07 | P.EN_ITS ---
Event Note Date of Service: 05/14/25 Event Note: 8:15 PM - Patient wished to leave AMA. He has personal issues to resolve and has no one to help him. He understands the risks of leaving the hospital prematurely such as worsening infection to the hand/finger leading to loss of function to the hand or hand loss, sepsis and . Two RNs were witnesses. Patient was advised to return to the ED if symptoms worsen. Jennifer Castillo from [facility] was contacted to let her know about patient leaving AMA and recommended dressing change and pull the packing. Time Spent With Patient Time: Total time managing care of this patient today ____ minutes.
[2025-05-19 11:10] LABS: Designer Benzodiazepines, UR POSTIVIE; Designer Fentanyl Analogs, UR POSITIVE; Designer Opioids, UR NEGATIVE
[2025-05-19 11:11] LABS: Other Illicit Additives, UR POSITIVE; Synthetic Cannabinoids, UR NEGATIVE
[2025-05-19 11:12] LABS: Designer Stimulants, UR NEGATIVE
--- NOTE | 2025-06-30 15:51 | P.OP_ITS ---
Operative Note Operative Note Date of Service: 05/12/25 Narrative: Date of Service: 05/12/25 Pre-op diagnosis: Right index finger flexor tenosynovitis Post-op diagnosis: same Procedure: open flexor tenosynovectomy, incision and debridement right index finger Implants: none Surgeon: Darshan Brar MD Anesthesia: GLMA and local Was an Rotary Furnace Operator used for this Procedure?: No Estimated blood loss (mL): 5 Tourniquet time (min): 15 IV fluids (mL): 500 Pathology: other Condition: stable Disposition: PACU Patient was brought to the operating room and placed supine on the surgical table. She was prepped and draped in standard sterile fashion and a time out was called to indentify proper site, proper procedure and IV antibiotics per weight were administered. I began by making a Golden type incision over the right index finger volar aspect from the middle phalanx down over the PIP joint. Dissection was kept midline down to the flexor tendon. There was gross purulence expressed. The flexor tendon sheath was incised and while maintaining the A2 and the A4 patric the flexor sheath was irrigated copiously with saline. Care was taken to avoid the neurovascular bundle and there was no evidence of flexor tenosynovitis extending more proximal than the A2 patric. Nevertheless I irrigated copiously. I then closed with loose nylon. Patient was placed in sterile dressings and a volar splint in the position of safety. He was extubated brought to recovery room in stable condition. There were no known complications.
--- NOTE | 2025-07-10 13:00 | PM.DS ---
DS: Providers Provider Date of Service: 05/14/25 Date of admission: 05/12/25 09:46 Date of discharge: 05/14/25 Primary care physician: [facility] Consults: 05/12/25 16:30 Consult to Hospitalist Routine Comment: [place] [facility] [place] Reason For Exam: routine medical management 05/12/25 18:19 Addiction Medicine Provider Routine Consulting Provider: Addiction Covering Reason for consultation: polysubstance use; on methadone; bradycardia Has provider been notified: No 05/14/25 08:31 Consult to Infectious Diseases Routine Consulting [place] [facility] [place] [facility] Reason for consultation: tenosynovitis, 1/2 BCx + Has provider been notified: No 05/14/25 09:06 Consult to Infectious Diseases Routine Consulting Provider[place] [facility] [place] [facility] Reason for consultation: right index finger flexor tenosynovitis, polysubstance abuse - cocaine DS: Diagnosis Discharge Diagnosis (1) Flexor tenosynovitis of finger: Status: Acute (2) Polysubstance use disorder: Status: Acute DS: Summary Hospital Course Hospital Course: The patient underwent a successful open flexor tenosynovectomy, incision and debridement right index finger, they were transferred to PACU and then to the floor to recover. The patient unfortunately left AMA. Time Attestation Discharge Coordination Time (in mins): 30 Quality: Safe Use of Opioids Does Pt have an Active Cancer Diagnosis on the Problem List?: No Quality: Stroke Does the patient have a stroke diagnosis?: No Physical Exam Vital Signs: Vital Signs: Last Vital Signs Temp 99.2 F 05/14/25 19:17 Pulse 59 05/14/25 19:17 Resp 18 05/14/25 19:17 BP 155/88 H 05/14/25 19:17 Pulse Ox 98 05/14/25 19:17 O2 Del Method Room Air 05/14/25 19:17 BMI result Body Mass Index 27.9 Extrem: Other: Left AMA DS: Data Data Completed and Pending Completed studies during hospitalization [Text1]: Procedures Excision of Right Hand Tendon, Open Approach (05/12/25) Discharge Plan Discharge Patient Disposition: Left Against Medical Advice Discharge Diagnosis: open flexor tenosynovectomy, incision and debridement right index finger Referrals: [facility] [Primary Care Provider, Primary Care] - 1 Week Discharge Medications: New sulfamethoxazole-trimethoprim [Bactrim] 400-80 mg tablet 1 tab PO BID Qty: 14 0RF No Action sulfamethoxazole-trimethoprim [Bactrim DS] 800-160 mg tablet 1 tab PO BID Qty: 14 0RF methadone [Methadose] 10 mg/mL Concentrate 140 mg PO DAILY Discharge Orders: Discharge Order (Routine); Ordered 07/10/25 Ordered By: Jennifer Michaels Diet: Advance to usual diet Activity on Discharge: As tolerated Print Language: Thai Care Plan Goals: restore fxn to rt finger Health Concerns: None Plan of Treatment: Patient left AMA Assessment: Patient left AMA Discharge Date/Time: 05/14/25 20:37
== END 2025-05-14 20:37 | disposition left against medical advice (07) | DRG 316 ==
LOC: HO.ED 09:49 → HO.EDOVER 09:54 → HO.S3 15:35
PROVIDERS: Nurse Practitioner Psychiatric/Mental Health; Orthopaedic Surgery; Physician Assistant Medical; Admitting Provider Physician Assistant; Emergency Provider Emergency Medicine; PCP Dentist General Practice; Visit Provider Physician Assistant
PROC: 0LB70ZZ Excision of Right Hand Tendon, Open Approach (ICD-10-PCS; principal; 2025-05-12 14:30)
DX: M65.941 Unspecified synovitis and tenosynovitis, right hand (principal); F11.20 Opioid dependence, uncomplicated; F19.90 Other psychoactive substance use, unspecified, uncomplicated; R00.1 Bradycardia, unspecified; F17.210 Nicotine dependence, cigarettes, uncomplicated; Z79.899 Other long term (current) drug therapy
CPT/HCPCS: 36415; 73140; 73201; 80048; 80076; 80202; 80307; 80346; 80352; 80354; 80364; 80371; 80375; 83036; 83605; 83735; 85025; 86140; 87040; 87070; 87077; 87186; 87205; 93005; 99285; 99499; J0131; J0690; J1171; J1885; J2003; J2250; J2704; J2795; J3010; J3373; J3374; J7120; Q9967

== ENCOUNTER → 2025-05-12 08:11 | Outpatient (BNV) | payer MEDICAID, SELFPAY | PROVIDERS: Admitting Provider Physician Assistant; Emergency Provider Emergency Medicine; PCP Dentist General Practice; Visit Provider Internal Medicine Cardiovascular Disease | DX: R00.1 Bradycardia, unspecified (principal) | CPT/HCPCS: 93010 ==

== ENCOUNTER → 2025-05-12 09:46 | Outpatient (BNV) | payer MEDICAID, SELFPAY | PROVIDERS: Admitting Provider Physician Assistant; Emergency Provider Emergency Medicine; PCP Dentist General Practice; Visit Provider Orthopaedic Surgery | DX: M65.941 Unspecified synovitis and tenosynovitis, right hand (principal); F19.90 Other psychoactive substance use, unspecified, uncomplicated | CPT/HCPCS: 99024; 99223; 99499 ==

== ENCOUNTER → 2025-05-12 09:46 | Outpatient (BNV) | payer MEDICAID, SELFPAY | PROVIDERS: Admitting Provider Physician Assistant; Emergency Provider Emergency Medicine; PCP Dentist General Practice; Visit Provider Physician Assistant Medical | DX: F19.90 Other psychoactive substance use, unspecified, uncomplicated (principal); R00.1 Bradycardia, unspecified | CPT/HCPCS: 99223; 99232; 99233 ==